=== PATIENT | male | born 1965 | race Two or more races ===

== ENCOUNTER 2018-08-18 09:54 | Day surgery (SDC) | payer OTHER ==
--- NOTE | 2018-08-17 12:35 | NUR ---
[id number].
[2018-08-18] VITALS (9 sets, daily range): BP systolic 117–133; BP diastolic 68–86
[~2018-08-18] VITALS: Ht 177.8 cm; Wt 93.0 kg
[~2018-08-18 09:54] MED LIST: NKM; ceFAZolin 1gm IVPB IVPB ONE; celeBREX 200mg Cap **SURGERY PATIENTS ONLY ORAL ONE; oxyCONTIN 20mg tab ORAL ONE
[2018-08-18] MEDS ORDERED: oxyCONTIN 20mg tab ORAL ONE (12:27)
[2018-08-18] MEDS ORDERED: celeBREX 200mg Cap **SURGERY PATIENTS ONLY ORAL ONE (12:27)
[2018-08-18] MEDS ORDERED: Midazolam 2mg/2ml Inj ONE (14:24)
[2018-08-18] MEDS ORDERED: fentaNYL 100 mcg/2 mL IV ONE (14:24)
[2018-08-18] MEDS ORDERED: Lidocaine 1% MPF 10mg/ml 5ml ONE ×2 (14:27→14:28)
[2018-08-18] MEDS ORDERED: Propofol 200mg/20ml IV ONE (14:27)
[2018-08-18] MEDS ORDERED: Ketorolac 30mg Inj ONE ×2 (14:27→15:20)
[2018-08-18] MEDS ORDERED: EPINEPHrine 1mg/1ml Amp ONE (15:20)
[2018-08-18] MEDS ORDERED: Bupivacaine 0.25% Inj 30ml INJ ONE (15:20)
[2018-08-18] MEDS ORDERED: Kenalog-40 1ml Vial ONE (15:20)
[2018-08-18] MEDS ORDERED: LR 1000ml ONE (16:00)
[2018-08-18] MEDS ORDERED: NS Irrig 4000ml IRRIG ONE (16:00)
[2018-08-18] MEDS ORDERED: LR 1000ml 1,000 ML IVLG SCH (16:31)
--- NOTE | 2018-08-18 16:31 | Anethesia Preoperative Eval ---
Anesthesia Pre-op PMH/ROS General Date of Evaluation: Aug 18, 2018 Time of Evaluation: 15:15 Anesthesiologist: Torres ASA Score: ASA 2 Mallampati Score Class I : Soft palate, uvula, fauces, pillars visible Class II: Soft palate, uvula, fauces visible Class III: Soft palate, base of uvula visible Class IV: Only hard plate visible Mallampati Classification: Class II Surgeon: Beck Diagnosis: R shoulder pain Surgical Procedure: R shoulder scope Anesthesia History: none Allergies: Coded Allergies: No Known Allergies (Unverified , 08/18/18) Medications: see eMAR Patient NPO?: Yes Past Medical History Cardiovascular: Denies: HTN, CAD, [place], valve dz, arrhythmia, other Pulmonary: Denies: asthma, COPD, JADIEL, other Gastrointestinal/Genitourinary: Reports: GERD - mild; Denies: CRI, ESRD, other Neurologic/Psychiatric: Denies: dementia, CVA, depression/anxiety, TIA, other Endocrine: Denies: DM, hypothyroidism, steroids, other HEENT: Denies: cataract (L), cataract (R), glaucoma, [place] (L), [place] (R), other Hematology/Immune: Denies: anemia, DVT, bleeding disorder, other Musculoskeletal/Integumentary: Denies: OA, RA, DJD, DDD, edema, other PMH Narrative: as above PSxH Narrative: none Anesthesia Pre-op Phys. Exam Physician Exam Last Vital Signs Date Time Temp Pulse Resp B/P (MAP) Pulse Ox O2 Delivery O2 Flow Rate FiO2 08/18/18 12:20 Room Air 08/18/18 12:04 97.2 62 18 118/75 97 Constitutional: NAD Neurologic: CN 2-12 intact Cardiovascular: RRR, no M/R/G Respiratory: CTA Gastrointestinal: S/NT/ND Airway Exam Mallampati Score: Class II MO: full Neck: flexible ROM: full Teeth: missing Dentures: no upper, no lower Anesthesia Pre-op A/P Labs see chart Studies Pre-op Studies: EKG - NSR Risk Assessment & Plan Assessment: ASA 2 Plan: GA with LMA R brachial plexus block Status Change Before Surgery: No Pre-Antibiotics Drug: Ancef 2gr. Given Within 1 Hr of Incision: Yes Time Given: 16:15 Misael Macdonald MD Aug 18, 2018 16:31
[2018-08-18] MEDS ORDERED: Meperidine 50mg/ml Inj(FOR RIGORS ONLY) IV PRN (16:45)
[2018-08-18] MEDS ORDERED: Ketorolac 30mg Inj IV PRN (16:45)
[2018-08-18] MEDS ORDERED: DiphenhydrAMINE 50mg/ml Inj IVP PRN (16:45)
--- NOTE | 2018-08-18 17:03 | Operative Note - PDOC ---
Operative Note Operative Note Pre-op Diagnosis: right shoulder impingement, rct Procedure: see op report Post-op Diagnosis: same as pre-op plus Operative Findings: consistent w/pre-op dx studies Anesthesia: regional Specimen: none Complications: none Condition: stable Estimated Blood Loss: none Implant(s) used?: No Armando Solares MD Aug 18, 2018 17:03
--- NOTE | 2018-08-18 17:03 | Pre-Procedure Note/Attestation ---
Pre-Procedure Note/Attestation Complete Prior to Procedure Planned Procedure: right Procedure Narrative: shoulder diagnostic arthroscopy, sad Indications for Procedure Pre-Operative Diagnosis: right shoulder impingement, rct Attestation I attest that I discussed the nature of the procedure; its benefits; risks and complications; and alternatives (and the risks and benefits of such alternatives ), prior to the procedure, with the patient (or the patient's legal career representative). I attest that, if there was a reasonable possibility of needing a blood transfusion, the patient (or the patient's legal career representative) was given the [facility] standardized written summary, pursuant to the [place] Kajal Blood Safety Act ([place] Health and Safety Code # 1645, as amended). I attest that I re-evaluated the patient just prior to the surgery and that there has been no change in the patient's H&P, except as documented below: Armando Solares MD Aug 18, 2018 17:03
--- NOTE | 2018-08-18 17:24 | Immediate Post-Op Evaluation ---
Immediate Post-Op Evalulation Immediate Post-Op Evalulation Procedure: R shoulder arthroscopy subacromion decompression Date of Evaluation: Aug 18, 2018 Time of Evaluation: 17:23 IV Fluids: 600 Blood Products: none Estimated Blood Loss: min Urinary Output: none Blood Pressure Systolic: 124 Blood Pressure Diastolic: 81 Pulse Rate: 64 Respiratory Rate: 20 O2 Sat by Pulse Oximetry: 99 Temperature (Fahrenheit): 97.6 Pain Score (1-10): 2 Nausea: No Vomiting: No Complications none Patient Status: reacts, patent, none Hydration Status: adequate Misael Macdonald MD Aug 18, 2018 17:24
[2018-08-18] MEDS ORDERED: Tylenol #3 tab (300mg/30mg) ORAL PRN (20:01)
[2018-08-18] MEDS ORDERED: Norco 5mg/325mg tab ORAL PRN (20:01)
[2018-08-18] MEDS ORDERED: D5 1/2NS 1,000 ML IV SCH (20:01)
[2018-08-18] MEDS ORDERED: HYDROmorphone 1mg/ml Carpuject SUBQ PRN (20:01)
--- NOTE | 2018-08-18 20:45 | Operative Note - Dictated ---
DATE OF OPERATION: 08/18/2018 PREOPERATIVE DIAGNOSES: 1. Right shoulder impingement syndrome. 2. Right shoulder partial rotator cuff tear. POSTOPERATIVE DIAGNOSES: 1. Right shoulder impingement syndrome. 2. Right shoulder partial rotator cuff tear. PROCEDURES: 1. Right shoulder diagnostic arthroscopy. 2. Right shoulder subacromial decompression bursectomy. 3. Debridement of bursal-sided rotator cuff tear. SURGEON: Armando Solares M.D. ANESTHESIA: Interscalene general. INDICATION FOR PROCEDURE: The patient is a pleasant gentleman who has had progressive right shoulder pain, failed conservative treatment, elected to undergo right shoulder diagnostic arthroscopy as well as decompression bursectomy. Risks, limitations, expectations, and complications of procedure were discussed in detail. All questions addressed. DESCRIPTION OF PROCEDURE: After informed consent was obtained, the patient was brought to the operating room, placed under monitored anesthesia control. The patient was then carefully placed in beach-chair position. Right shoulder was prepped and draped in a sterile manner. Time-out was performed. Posterolateral skin incision was then made. Trocar was introduced into the glenohumeral joint. No significant chondral damage. The anterior labrum appeared to be intact along with the superior labrum. The biceps tendon was intact. Subscap was intact. The undersurface of rotator cuff appeared to be intact. The camera was then repositioned into the subacromial space. There was hypertrophic bursal tissue and a significant bone spur. Bone spur was identified and acromioplasty was started from lateral to medial and completed from posterior to anterior. Once that was completed, the bursectomy was completed. There was a partial bursal-sided articular tear, which was debrided. Once this was done, the instruments were removed. Portal sites were closed using 3-0 Monocryl sutures. Steri-Strips and a sterile dressing were applied. The patient was awoken and taken to recovery room with stable vital signs. ESTIMATED BLOOD LOSS: None. COMPLICATIONS: None. SPECIMENS: None. IMPLANTS: None. Armando Solares M.D. DR: KYLEE JOB#: [id number] CC:
[2018-08-21 08:02] VITALS: BP 128/56
--- NOTE | 2018-08-21 08:02 | 48 Hour Post Anesthesia Eval ---
Post Anesthesia Evaluation Procedure: R shoulder arthroscopy subacromion decompression Date of Evaluation: Aug 18, 2018 Time of Evaluation: 17:10 Blood Pressure Systolic: 128 0: 56 Pulse Rate: 72 Respiratory Rate: 20 Temperature (Fahrenheit): 97.6 O2 Sat by Pulse Oximetry: 98 Airway: patent Nausea: No Vomiting: No Pain Intensity: 2 Hydration Status: adequate Cardiopulmonary Status: stable Mental Status/LOC: patient returned to baseline Follow-up Care/Observations: n/a Post-Anesthesia Complications: none Follow-up care needed: ready to discharge Misael Macdonald MD Aug 21, 2018 08:02
== END 2018-08-18 18:40 | disposition home or self-care (01) ==
LOC: SUR 09:54
DX: M75.41 Impingement syndrome of right shoulder (principal); M75.111 Incomplete rotator cuff tear or rupture of right shoulder, not specified as traumatic; K21.9 Gastro-esophageal reflux disease without esophagitis; F17.200 Nicotine dependence, unspecified, uncomplicated
CPT/HCPCS: 29822; 29826; J0171; J0690; J1885; J2250; J2704; J3010; J3301; J3490; 94003; 94150